=== PATIENT | male | born 1940 ===

== ENCOUNTER 2018-12-01 07:53 | Outpatient (CLI) | payer OTHER ==
[~2018-12-01] VITALS: Ht 152.4 cm; Wt 74.8 kg
[~2018-12-01 07:53] MED LIST: ADULT ASPIRIN81 MG PO; GLIPIZIDE10 MG PO; GLUCOPHAGE XR500 MG PO; JANUVIA100 MG PO; SIMVASTATIN10 MG PO
== END 2018-12-01 08:10 | disposition home or self-care (01) ==
LOC: OFIC 805 07:53
DX: H90.3 Sensorineural hearing loss, bilateral (principal)

== ENCOUNTER → 2023-07-05 11:31 | Outpatient (CLI) | payer OTHER | END | disposition home or self-care (01) | LOC: LAB 11:31 | PROVIDERS: ATTEND Specialist | DX: U07.1 COVID-19 (principal); J10.89 Influenza due to other identified influenza virus with other manifestations ==

== ENCOUNTER → 2023-07-05 | Outpatient (CLI) | payer OTHER | END | disposition home or self-care (01) | LOC: SONOGRAMA 12:01 | PROVIDERS: ATTEND Specialist | DX: J01.20 Acute ethmoidal sinusitis, unspecified (principal); N18.2 Chronic kidney disease, stage 2 (mild); E11.22 Type 2 diabetes mellitus with diabetic chronic kidney disease ==